=== PATIENT | male | born 1990 | race Two or more races ===

== ENCOUNTER 2024-03-26 09:57 | Emergency (ER) | payer MEDICAID, SELFPAY ==
[2024-03-26 10:15] VITALS: BP 143/92; PULSE 97; RESP 20; TEMP 36.7; O2SAT 98; BMI 32.0
--- NOTE | 2024-03-26 10:28 | XR_ITS ---
Examination: PA lateral chest 2 views TECHNIQUE: Upright PA lateral chest 2 views Exam date and time: March 26, 2024 10:33 AM INDICATIONS: Onset chest pain today. FINDINGS: Normal heart size Lungs are clear No pneumonia or pulmonary edema IMPRESSION: No pneumonia or pulmonary edema
--- NOTE | 2024-03-26 10:28 | XR_ITS ---
Examination: Shoulder,right, 3 views Technique: Shoulder AP internal rotation, AP external rotation, Y view shoulder, 3 views Exam date and time :March 26, 2024 1031 hours INDICATIONS: Onset shoulder pain today FINDINGS: Mild narrowing glenohumeral joint No shoulder fracture or shoulder dislocation No AC joint separation IMPRESSION: Mild narrowing glenohumeral joint
[2024-03-26] MEDS: KETOROLAC INJ 30 MG/ML VIAL IM (10:43)
[2024-03-26] MEDS: DIAZEPAM 5 MG TABLET 10 MG PO (10:43)
--- NOTE | 2024-03-26 11:39 | EDNOTE_ITS ---
Upper Extremity Injury RME/HPI General Chief Complaint: Extremity Injury, Upper Stated Complaint: Right side shoulder pain, right lung Time Seen by Provider: 03/26/24 10:04 Arrival date/time: 03/26/24 09:57 33-year-old male presents emergency department complaints of right upper back pain right flank and right sided chest pain patient reports pain is worse with movement every time he moves his shoulder moves his body he has pain. Patient reports no direct injury Limitations: no limitations Related Data Previous Rx's ?Medication ?Instructions ?Recorded albuterol sulfate 90 mcg/actuation 1 inh inhalation QID PRN shortness 05/25/21 aerosol inhaler (Proventil HFA) of breath or wheezing #6.7 grams doxycycline hyclate 100 mg capsule 100 mg PO BID #20 caps 05/25/21 montelukast 10 mg tablet 10 mg PO QDAY #30 tabs 12/22/21 magnesium citrate 150 ml PO BID PRN constipation 05/25/22 #296 mL clindamycin HCl 300 mg capsule 300 mg PO TID #21 caps 07/27/23 nystatin 100,000 unit/gram topical 1 applic topical BID #30 grams 07/27/23 cream cyclobenzaprine 10 mg tablet 10 mg PO TID PRN muscle spasm 10 03/26/24 days #30 tab-caps ibuprofen 800 mg tablet 800 mg PO TID PRN pain #30 tabs 03/26/24 Allergies Allergy/AdvReac Type Severity Reaction Status Date / Time amoxicillin Allergy Severe Rash Verified 04/19/22 16:15 Review of Systems Review of Systems Systems Reviewed: All systems reviewed, normal except as documented Constitutional Constitutional: Reports system reviewed and no additional complaints, except as documented, Denies fever(s) and Denies headache(s) Eyes Eyes: Reports system reviewed and no additional complaints, except as documented and Denies blurry vision ENT Ears, Nose, Mouth, and Throat: Reports system reviewed and no additional complaints, except as documented, Denies headache(s), Denies nasal congestion and Denies nasal discharge Cardiovascular Cardiovascular: Reports system reviewed and no additional complaints, except as documented, Denies chest pain and Denies dyspnea Respiratory Respiratory: Reports system reviewed and no additional complaints, except as documented, Denies chest congestion, Denies cough and Denies dyspnea Gastrointestinal Gastrointestinal: Reports system reviewed and no additional complaints, except as documented and Denies abdominal pain Musculoskeletal Musculoskeletal: Reports system reviewed and no additional complaints, except as documented, Reports arthralgias, Denies deformity, Denies joint swelling, Denies numbness, Reports stiffness and Denies tingling Integumentary/Breasts Skin/Breast: Reports system reviewed and no additional complaints, except as documented and Denies rash Neurologic Neurologic: Reports system reviewed and no additional complaints, except as documented, Reports as per HPI, Denies headache(s), Denies numbness and Denies tingling Past Medical History Past Medical History NEUROLOGIC: Negative Neurological Disorders CARDIAC: Negative Cardiac Disorders or Congestive Heart Failure RESPIRATORY: Negative Chronic Obstructive Pulmonary Disease (COPD) GENITOURINARY: Negative Renal Disease ENDOCRINE: Negative Diabetes Mellitus Type 1 or Diabetes Mellitus Type 2 Social History SMOKING STATUS: Current every day smoker ED Exam General Limitations: Present no limitations General appearance: Present alert and in no apparent distress Head Head exam: Present atraumatic, normocephalic and normal inspection Eye Eye exam: Present normal appearance, PERRL and EOMI; Absent conjunctival injection ENT ENT exam: Present normal exam, normal oropharynx and mucous membranes moist Neck Neck exam: Present normal inspection, full ROM and trachea midline Chest Chest inspection: Present normal inspection and symmetric chest wall rise Respiratory Respiratory exam: Present normal lung sounds bilaterally; Absent respiratory distress Cardiovascular Cardiovascular exam: Present regular rate, normal rhythm and normal heart sounds Abdominal Exam Abdominal exam: Present soft and normal bowel sounds; Absent distention, tenderness, guarding, rebound or rigidity Extremities Exam Extremities exam: Present normal inspection, full ROM, tenderness (Right shoulder pain) and normal capillary refill Back Exam Back exam: Present normal inspection and full ROM; Absent tenderness Neurological Exam Neurological exam: Present alert, oriented X3, CN II-XII intact, normal gait and reflexes normal; Absent motor sensory deficit Psychiatric Psychiatric exam: Present normal affect and normal mood Skin Skin exam: Present warm, dry, intact and normal color; Absent rash Course Quality Measures none Orders Category Date Time Status XR chest 2V Stat Exams 03/26/24 10:28 Completed XR shoulder RT min 2V Stat Exams 03/26/24 10:28 Completed Diazepam [Valium] Med 03/26/24 10:28 Discontinued 10 mg PO X1 ONE Ketorolac Inj [Toradol Inj] Med 03/26/24 10:28 Discontinued 30 mg IM X1 ONE Vital Signs Vital signs: Vital Signs Temperature 98.1 F 03/26/24 10:15 Pulse Rate 97 03/26/24 10:15 Respiratory Rate 20 03/26/24 10:15 Blood Pressure 143/92 H 03/26/24 10:15 Pulse Oximetry (%) 98 03/26/24 10:15 Oxygen Delivery Method Room Air 03/26/24 10:15 O2 saturation 98% room air within normal limits Extremity Injury MDM Narrative MDM Narrative:: 33-year-old male presents emergency department complaints of right upper back pain right flank and right sided chest pain patient reports pain is worse with movement every time he moves his shoulder moves his body he has pain. Patient reports no direct injury On exam patient well-appearing patient does not appear ill or toxic in no acute distress patient is no shortness of breath lungs are clear to auscultation Right shoulder as well as chest x-ray obtained no acute emergent findings noted Patient medicated here reports pain has improved Patient discharged home in no distress to follow-up with primary care doctor in the next 24 to 48 hours and for any worsening symptoms to return to the ER immediately Patient data External records reviewed:: [facility] previous records Clinical information provided by:: patient Social determinants that could affect healthcare access:: none Patient has the following chronic illnesses:: None How is presenting disease/condition affected by chronic disease/condition?: no chronic disease Evaluation data The following diagnostics were reviewed and interpreted by me:: radiology exam(s) Lab and/or radiology exams considered but not ordered:: Radiology obtained Interpretation Summary: Reviewed by me Medications / Prescriptions Medications or Prescriptions considered but not ordered:: Given Medication administrations:: Medication Administration History Discontinued Medications Diazepam (Diazepam 5 Mg Tablet) 10 mg PO X1 ONE Stop: 03/26/24 10:29 Last Admin: 03/26/24 10:43 Dose: 10 mg Documented By: MALIHA Ketorolac Tromethamine (Ketorolac Inj 30 Mg/Ml Vial) 30 mg IM X1 ONE Stop: 03/26/24 10:29 Last Admin: 03/26/24 10:43 Dose: 30 mg Documented By: MALIHA Given Consultations Consultation(s) initiated? (list below): No Diagnosis Upper Extremity Injury Differential Diagnosis: other (Shoulder sprain, shoulder strain, chest wall pain) Most likely diagnosis given after review of the tests above:: Shoulder pain, chest wall pain Admission Indicated Admission indicated?: not indicated Admission Request Was there a request for admission?: No Disposition Plan Disposition Plan: Discharge Discharge Attestation Discharge Attestation: The patient and all family members were given an opportunity to ask questions and understood the discharge instructions. Discharge instructions specifically effects, indications for sooner follow up or return to the emergency department, and the expected course of current diagnosis. Patient condition: Stable Discharge Plan Plan Patient Disposition: HOME (Self Care) Disposition Comment: Stable Prescriptions/Referrals Prescriptions/Med Rec: New cyclobenzaprine 10 mg tablet 10 mg PO TID PRN (Reason: muscle spasm) 10 Days Qty: 30 0RF ibuprofen 800 mg tablet 800 mg PO TID PRN (Reason: pain) Qty: 30 0RF No Action doxycycline hyclate 100 mg capsule 100 mg PO BID Qty: 20 0RF albuterol sulfate [Proventil HFA] 90 mcg/actuation HFA aerosol inhaler 1 inh inhalation QID PRN (Reason: shortness of breath or wheezing) Qty: 6.7 0RF montelukast 10 mg tablet 10 mg PO QDAY Qty: 30 0RF magnesium citrate Solution 150 ml PO BID PRN (Reason: constipation) Qty: 296 0RF clindamycin HCl 300 mg capsule 300 mg PO TID Qty: 21 0RF nystatin 100,000 unit/gram cream 1 applic topical BID Qty: 30 0RF Referrals: No Primary/Family,Physician [Primary Care Provider] - In 1 week Problem List Clinical Impression: Pain in right shoulder, Back pain Patient/Caregiver Discharge Instructions Education Materials: Back Safety: Turning Additional Instructions: Please follow up with your primary care doctor in the next 24-48hrs for any worsening symptoms return here immediately Print Language: [place] Stand Alone Forms: Franca Award Info., Work/School Release, Patient Portal Info Letter PA/INSTALLMENT DEALER Supervising Physician PA/CRISTIANA Supervising Physician: Dr. Fletcher
== END 2024-03-26 11:49 | disposition home or self-care (01) ==
PROVIDERS: Emergency Provider Emergency Medicine
DX: M25.511 Pain in right shoulder (principal); M54.6 Pain in thoracic spine; R07.89 Other chest pain; F17.210 Nicotine dependence, cigarettes, uncomplicated
CPT/HCPCS: 71046; 73030; 96372; 99283; J1885; A9270

== ENCOUNTER 2024-07-07 09:47 | Emergency (ER) | payer MEDICAID, SELFPAY ==
[2024-07-07 10:01] VITALS: BP 146/89; PULSE 103; RESP 16; TEMP 39.4; O2SAT 97; BMI 35.2
--- NOTE | 2024-07-07 10:06 | PD.EDURI ---
Upper Respiratory Inf. RME/HPI General Chief Complaint: Dental/Oral/Throat Stated Complaint: SORE THROAT X 3 DAYS, NO PO INTAKE X 2 DAYS Time Seen by Provider: 07/07/24 09:59 Source: patient Arrival date/time: 07/07/24 09:47 34-year-old male with no known medical history presents to the emergency room with a chief complaint of sore throat, painful swallowing, fevers x 2 days Mode of arrival: ambulatory Limitations: no limitations Related Data Previous Rx's ?Medication ?Instructions ?Recorded albuterol sulfate 90 mcg/actuation 1 inh inhalation QID PRN shortness 05/25/21 aerosol inhaler (Proventil HFA) of breath or wheezing #6.7 grams doxycycline hyclate 100 mg capsule 100 mg PO BID #20 caps 05/25/21 montelukast 10 mg tablet 10 mg PO QDAY #30 tabs 12/22/21 magnesium citrate 150 ml PO BID PRN constipation 05/25/22 #296 mL clindamycin HCl 300 mg capsule 300 mg PO TID #21 caps 07/27/23 nystatin 100,000 unit/gram topical 1 applic topical BID #30 grams 07/27/23 cream ibuprofen 800 mg tablet 800 mg PO TID PRN pain #30 tabs 03/26/24 azithromycin 500 mg tablet 500 mg PO QDAY 5 days #5 tabs 07/07/24 Allergies Allergy/AdvReac Type Severity Reaction Status Date / Time amoxicillin Allergy Severe Rash Verified 07/07/24 09:50 Review of Systems Review of Systems Systems Reviewed: All systems reviewed, normal except as documented Constitutional Constitutional: Reports system reviewed and no additional complaints, except as documented, Denies fatigue, Reports fever(s), Denies headache(s) and Denies weakness Eyes Eyes: Reports system reviewed and no additional complaints, except as documented, Denies blurry vision and Denies change in vision ENT Ears, Nose, Mouth, and Throat: Reports system reviewed and no additional complaints, except as documented, Denies otalgia, Denies headache(s), Denies nasal congestion, Reports odynophagia, Reports sore throat, Denies throat swelling and Denies vertigo Cardiovascular Cardiovascular: Reports system reviewed and no additional complaints, except as documented, Denies chest pain, Denies dyspnea and Denies dyspnea on exertion Respiratory Respiratory: Reports system reviewed and no additional complaints, except as documented, Denies chest congestion, Denies cough, Denies dyspnea, Denies dyspnea on exertion and Denies wheezing Gastrointestinal Gastrointestinal: Reports system reviewed and no additional complaints, except as documented, Denies abdominal pain, Denies cramping, Denies nausea, Reports odynophagia and Denies vomiting Genitourinary Genitourinary: Reports system reviewed and no additional complaints, except as documented, Denies dysuria and Denies hematuria Musculoskeletal Musculoskeletal: Reports system reviewed and no additional complaints, except as documented and Denies back pain Integumentary/Breasts Skin/Breast: Reports system reviewed and no additional complaints, except as documented and Denies wounds Neurologic Neurologic: Reports system reviewed and no additional complaints, except as documented, Denies confusion, Denies headache(s), Denies lack of coordination, Denies vertigo and Denies weakness Psychiatric Psychiatric: Reports system reviewed and no additional complaints, except as documented, Denies anxiety, Denies confusion, Denies depression, Denies paranoia, Denies suicidal ideation and Denies tactile hallucinations Endocrine Endocrine: Reports system reviewed and no additional complaints, except as documented and Denies fatigue Hematologic/Lymphatic Hematologic/Lymphatic: Reports system reviewed and no additional complaints, except as documented and Denies lymphadenopathy Allergic/Immunologic Allergic/Immunologic: Reports system reviewed and no additional complaints, except as documented, Denies throat swelling, Denies urticaria and Denies wheezing Past Medical History Past Medical History NEUROLOGIC: Negative Neurological Disorders CARDIAC: Negative Cardiac Disorders or Congestive Heart Failure RESPIRATORY: Negative Chronic Obstructive Pulmonary Disease (COPD) GENITOURINARY: Negative Renal Disease ENDOCRINE: Negative Diabetes Mellitus Type 1 or Diabetes Mellitus Type 2 Social History SMOKING STATUS: Current every day smoker ED Exam General Limitations: Present no limitations General appearance: Present alert and in no apparent distress Head Head exam: Present atraumatic Eye Eye exam: Present normal appearance, PERRL and EOMI ENT ENT exam: Present normal exam, normal oropharynx and mucous membranes moist Expanded ENT Exam External ear exam: Present normal external inspection Mouth exam: Present normal external inspection; Absent drooling, trismus, tongue normal, tongue elevation or tongue swelling Teeth exam: Present normal inspection Throat exam: Present tonsillar erythema, tonsillar exudate and muffled voice; Absent R peritonsillar mass or L peritonsillar mass Neck Neck exam: Present normal inspection, full ROM and trachea midline Chest Chest inspection: Present normal inspection and symmetric chest wall rise Respiratory Respiratory exam: Present normal lung sounds bilaterally Cardiovascular Cardiovascular exam: Present regular rate, normal rhythm and normal heart sounds Abdominal Exam Abdominal exam: Present soft and normal bowel sounds Extremities Exam Extremities exam: Present normal inspection and full ROM Back Exam Back exam: Present normal inspection and full ROM Neurological Exam Neurological exam: Present alert, oriented X3 and CN II-XII intact Psychiatric Psychiatric exam: Present normal affect and normal mood Skin Skin exam: Present warm, dry, intact and normal color Course Quality Measures none Orders Category Date Time Status Strep A Rapid Stat Lab 07/07/24 10:11 Completed Acetaminophen Tab [Tylenol ES Tab] Med 07/07/24 10:05 Discontinued 1,000 mg PO X1 ONE Dexamethasone Inj [Decadron Inj] Med 07/07/24 10:05 Discontinued 10 mg PO X1 ONE cefTRIAXone [Rocephin] 1,000 mg Med 07/07/24 10:06 Discontinued Lidocaine 1% 20 ml [Xylocaine 1% 20 ML] 2.1 ml IM X1 Vital Signs Vital signs: Vital Signs Temperature 102.9 F H 07/07/24 10:01 Pulse Rate 103 H 07/07/24 10:01 Respiratory Rate 16 07/07/24 10:01 Blood Pressure 146/89 H 07/07/24 10:01 Pulse Oximetry (%) 97 07/07/24 10:01 Oxygen Delivery Method Room Air 07/07/24 10:01 O2 saturation 97% within normal limits Upper Respiratory Infection MDM Narrative MDM Narrative:: 34-year-old male with no known medical history presents to the emergency room with a chief complaint of sore throat, painful swallowing, fevers x 2 days Patient is febrile at 102.9. Antipyretics were given. ENT examination was completed and shows an erythemic posterior pharynx with bilateral exudates to both tonsillar pillars as well as a posterior pharynx. Patient has difficulty swallowing but the uvula is midline there is no tongue swelling there is no throat swelling and there is no signs of any respiratory distress. Lung sounds are clear bilaterally. Findings are consistent with bacterial pharyngitis. Patient was discharged and educated to follow-up with primary care provider and return to the emergency room for any evidence of worsening signs or symptoms Patient data External records reviewed:: [facility] previous records Clinical information provided by:: patient Social determinants that could affect healthcare access:: none Patient has the following chronic illnesses:: No chronic illness How is presenting disease/condition affected by chronic disease/condition?: no chronic disease Evaluation data The following diagnostics were reviewed and interpreted by me:: lab results and radiology exam(s) Lab and/or radiology exams considered but not ordered:: Labs and radiology exams considered and ordered Interpretation Summary: N/A Medications / Prescriptions Medications or Prescriptions considered but not ordered:: Medication given Medication administrations:: Medication Administration History Discontinued Medications Acetaminophen (Acetaminophen 500 Mg Tablet) 1,000 mg PO X1 ONE Stop: 07/07/24 10:06 Last Admin: 07/07/24 10:19 Dose: 1,000 mg Documented By: OA Ceftriaxone Sodium 1,000 mg/ (Lidocaine HCl 2.1 ml) 0 mg IM X1 ONE Stop: 07/07/24 10:07 Last Admin: 07/07/24 10:19 Dose: 1,000 mg Documented By: OA Dexamethasone Sodium Phosphate (Dexamethasone Sod Phos Inj 10 Mg/Ml Vial) 10 mg PO X1 ONE Stop: 07/07/24 10:06 Last Admin: 07/07/24 10:19 Dose: 10 mg Documented By: OA Medication given Consultations Consultation(s) initiated? (list below): No Diagnosis Upper Respiratory Differential Diagnosis: upper respiratory infection, viral infection, bronchitis, influenza and pharyngitis Most likely diagnosis given after review of the tests above:: Pharyngitis Admission Indicated Admission indicated?: not indicated Admission Request Was there a request for admission?: No Disposition Plan Disposition Plan: Discharge Discharge Attestation Discharge Attestation: The patient and all family members were given an opportunity to ask questions and understood the discharge instructions. Discharge instructions specifically effects, indications for sooner follow up or return to the emergency department, and the expected course of current diagnosis. Patient condition: Stable Discharge Plan Plan Patient Disposition: HOME (Self Care) Disposition Comment: Stable Prescriptions/Referrals Prescriptions/Med Rec: New azithromycin 500 mg tablet 500 mg PO QDAY 5 Days Qty: 5 0RF No Action doxycycline hyclate 100 mg capsule 100 mg PO BID Qty: 20 0RF albuterol sulfate [Proventil HFA] 90 mcg/actuation HFA aerosol inhaler 1 inh inhalation QID PRN (Reason: shortness of breath or wheezing) Qty: 6.7 0RF montelukast 10 mg tablet 10 mg PO QDAY Qty: 30 0RF magnesium citrate Solution 150 ml PO BID PRN (Reason: constipation) Qty: 296 0RF clindamycin HCl 300 mg capsule 300 mg PO TID Qty: 21 0RF nystatin 100,000 unit/gram cream 1 applic topical BID Qty: 30 0RF ibuprofen 800 mg tablet 800 mg PO TID PRN (Reason: pain) Qty: 30 0RF Referrals: No Primary/Family,Physician [Primary Care Provider] - In 1 week Problem List Clinical Impression: Pharyngitis Patient/Caregiver Discharge Instructions Education Materials: ED Pharyngitis, Report Pending Additional Instructions: Please follow-up with your primary care provider in the next 24 to 48 hours. Antibiotics are sent to your pharmacy please pick them up and take them as indicated. For any evidence of worsening signs or symptoms return to the emergency room immediately Print Language: [place] Stand Alone Forms: Franca Award Info., Patient Portal Info Letter PA/MARKETING DEVELOPMENT REPRESENTATIVE Supervising Physician PA/MARKETING DEVELOPMENT REPRESENTATIVE Supervising Physician: Dr. Fletcher
[2024-07-07 10:19] VITALS: TEMP 39.4
[2024-07-07] MEDS: ACETAMINOPHEN 500 MG TABLET 1000 MG PO (10:19)
[2024-07-07] MEDS: DEXAMETHASONE SOD PHOS INJ 10 MG/ML VIAL PO (10:19)
[2024-07-07] MEDS: cefTRIAXone 1,000 MG, LIDOCAINE 1% 20 ML 2.1 ML IM (10:19)
[2024-07-07 10:39] LABS: Strep A Rapid Negative (Negative)
[2024-07-07 10:50] VITALS: TEMP 37.3
== END 2024-07-07 10:50 | disposition home or self-care (01) ==
PROVIDERS: Nurse Practitioner Family; Emergency Provider Emergency Medicine
DX: J02.9 Acute pharyngitis, unspecified (principal); F17.210 Nicotine dependence, cigarettes, uncomplicated
CPT/HCPCS: 87651; 96372; 99283; J0696; J1100; J3490; A9270

== ENCOUNTER 2024-11-20 15:48 | Emergency (ER) | payer MEDICAID, SELFPAY ==
[2024-11-20 15:59] VITALS: BP 138/89; PULSE 97; RESP 19; TEMP 36.8; O2SAT 97; BMI 32.7
--- NOTE | 2024-11-20 16:12 | XR_ITS ---
Examination: PA lateral chest 2 views TECHNIQUE: Upright PA and lateral chest 2 views Date and time: November 20, 2024 1624 hours Comparison March 26, 2024 INDICATIONS: Fever headache beginning 3 days ago. FINDINGS: Normal heart size. The lungs are clear. The osseous structures are intact. IMPRESSION: No active disease.
--- NOTE | 2024-11-20 16:56 | PD.EDURI ---
Upper Respiratory Inf. RME/HPI General Chief Complaint: Flu Like Symptoms Stated Complaint: flu like symptoms X3 days Time Seen by Provider: 11/20/24 16:00 Source: patient Arrival date/time: 11/20/24 15:48 34-year-old male with no known medical history presents to the emergency room with a chief complaint of cough, congestion, fever x 3 days Mode of arrival: ambulatory Limitations: no limitations Related Data Previous Rx's ?Medication ?Instructions ?Recorded albuterol sulfate 90 mcg/actuation 1 inh inhalation QID PRN shortness 05/25/21 aerosol inhaler (Proventil HFA) of breath or wheezing #6.7 grams doxycycline hyclate 100 mg capsule 100 mg PO BID #20 caps 05/25/21 montelukast 10 mg tablet 10 mg PO QDAY #30 tabs 12/22/21 magnesium citrate 150 ml PO BID PRN constipation 05/25/22 #296 mL clindamycin HCl 300 mg capsule 300 mg PO TID #21 caps 07/27/23 nystatin 100,000 unit/gram topical 1 applic topical BID #30 grams 07/27/23 cream ibuprofen 800 mg tablet 800 mg PO TID PRN pain #30 tabs 03/26/24 Allergies Allergy/AdvReac Type Severity Reaction Status Date / Time amoxicillin Allergy Severe Rash Verified 11/20/24 15:51 Past Medical History Past Medical History NEUROLOGIC: Negative Neurological Disorders CARDIAC: Negative Cardiac Disorders or Congestive Heart Failure RESPIRATORY: Negative Chronic Obstructive Pulmonary Disease (COPD) GENITOURINARY: Negative Renal Disease ENDOCRINE: Negative Diabetes Mellitus Type 1 or Diabetes Mellitus Type 2 Social History SMOKING STATUS: Light (< 1 pack/day) ED Exam General Limitations: Present no limitations General appearance: Present alert and in no apparent distress Head Head exam: Present atraumatic Eye Eye exam: Present normal appearance, PERRL and EOMI ENT ENT exam: Present normal exam, normal oropharynx and mucous membranes moist Neck Neck exam: Present normal inspection, full ROM and trachea midline Chest Chest inspection: Present normal inspection and symmetric chest wall rise Respiratory Respiratory exam: Present normal lung sounds bilaterally; Absent respiratory distress, wheezes, stridor, accessory muscle use or prolonged expiratory phase Cardiovascular Cardiovascular exam: Present regular rate, normal rhythm and normal heart sounds; Absent bradycardia, tachycardia or irregular rhythm Abdominal Exam Abdominal exam: Present soft and normal bowel sounds Extremities Exam Extremities exam: Present normal inspection and full ROM Back Exam Back exam: Present normal inspection and full ROM Neurological Exam Neurological exam: Present alert, oriented X3 and CN II-XII intact Psychiatric Psychiatric exam: Present normal affect and normal mood Skin Skin exam: Present warm, dry, intact and normal color Course Quality Measures none Orders Category Date Time Status Bedside COVID-19 Antigen Test NOW Care 11/20/24 16:12 Active Bedside Influenza A&B Antigen Test NOW Care 11/20/24 16:12 Completed XR chest 2V Stat Exams 11/20/24 16:12 Completed Strep A Rapid Stat Lab 11/20/24 16:14 Completed Vital Signs Vital signs: Vital Signs Temperature 98.3 F 11/20/24 15:59 Pulse Rate 97 11/20/24 15:59 Respiratory Rate 19 11/20/24 15:59 Blood Pressure 138/89 H 11/20/24 15:59 Pulse Oximetry (%) 97 11/20/24 15:59 Oxygen Delivery Method Room Air 11/20/24 15:59 Upper Respiratory Infection MDM Narrative MDM Narrative:: 34-year-old male with no known medical history presents to the emergency room with a chief complaint of cough, congestion, fever x 3 days Patient is hemodynamically stable and in no apparent distress Physical examination shows clear bilateral lung sounds there is no wheezing stridor or any abnormal breath sounds Patient has a erythemic posterior pharynx there is no exudates Patient tested positive for COVID-19 Patient was discharged and educated to follow-up with primary care provider in the next 24 to 48 hours and return to the emergency room for any evidence of worsening signs or symptoms Patient data External records reviewed:: [facility] previous records Clinical information provided by:: patient Social determinants that could affect healthcare access:: none Patient has the following chronic illnesses:: No chronic illness How is presenting disease/condition affected by chronic disease/condition?: no chronic disease Evaluation data The following diagnostics were reviewed and interpreted by me:: lab results and radiology exam(s) Lab and/or radiology exams considered but not ordered:: Labs and radiology exams considered in order Interpretation Summary: Chest [id number]: Normal heart size. The lungs are clear. The osseous structures are intact. IMPRESSION: No active disease. Medications / Prescriptions Medications or Prescriptions considered but not ordered:: No medication given Medication administrations:: No medication given Consultations Consultation(s) initiated? (list below): No Diagnosis Upper Respiratory Differential Diagnosis: upper respiratory infection, otitis media, sinusitis, viral infection, influenza, pharyngitis and other (COVID-19) Most likely diagnosis given after review of the tests above:: COVID-19 Admission Indicated Admission indicated?: not indicated Admission Request Was there a request for admission?: No Disposition Plan Disposition Plan: Discharge Discharge Attestation Discharge Attestation: The patient and all family members were given an opportunity to ask questions and understood the discharge instructions. Discharge instructions specifically effects, indications for sooner follow up or return to the emergency department, and the expected course of current diagnosis. Patient condition: Stable Discharge Plan Plan Patient Disposition: HOME (Self Care) Discharge Disposition comment: Stable Prescriptions/Referrals Prescriptions/Med Rec: No Action doxycycline hyclate 100 mg capsule 100 mg PO BID Qty: 20 0RF albuterol sulfate [Proventil HFA] 90 mcg/actuation HFA aerosol inhaler 1 inh inhalation QID PRN (Reason: shortness of breath or wheezing) Qty: 6.7 0RF montelukast 10 mg tablet 10 mg PO QDAY Qty: 30 0RF magnesium citrate Solution 150 ml PO BID PRN (Reason: constipation) Qty: 296 0RF clindamycin HCl 300 mg capsule 300 mg PO TID Qty: 21 0RF nystatin 100,000 unit/gram cream 1 applic topical BID Qty: 30 0RF ibuprofen 800 mg tablet 800 mg PO TID PRN (Reason: pain) Qty: 30 0RF Referrals: Marilu Cleaning MD [Primary Care Provider] - In 1 week Problem List Clinical Impression: COVID-19 Patient/Caregiver Discharge Instructions Education Materials: 2019-nCoV Additional Instructions: Please follow-up with your primary care provider in the next 24 to 48 hours. You tested positive for COVID-19. The treatment for this is symptom management. Please continue to take Tylenol and ibuprofen for fever management. Please increase your oral fluid intake. For any evidence of worsening signs or symptoms please return to the emergency room immediately Print Language: Persian Stand Alone Forms: Franca Award Info., Work/School Release, Patient Portal Info Letter NANCY/CRISTIANA Supervising Physician NANCY/DOCKING PILOT Supervising Physician: Dr. Rosado
[2024-11-20 17:08] LABS: Strep A Rapid Negative (Negative)
== END 2024-11-20 18:19 | disposition home or self-care (01) ==
PROVIDERS: Nurse Practitioner Family; Emergency Provider Family Medicine; PCP Family Medicine
DX: U07.1 COVID-19 (principal)
CPT/HCPCS: 71046; 87400; 87651; 87811; 99283